=== PATIENT | female | born 1975 | race American Indian/Alaskan Native ===

== ENCOUNTER 2016-12-05 16:10 | Emergency (ER) | payer SELFPAY ==
[2016-12-05] MEDS ORDERED: TYLENOL #3 PO ONE (19:42)
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
[2016-12-05 20:05] VITALS: BP 151/88
== END 2016-12-05 20:05 | disposition home or self-care (01) ==
LOC: ED 16:10
DX: S39.012A Strain of muscle, fascia and tendon of lower back, initial encounter (principal); I10 Essential (primary) hypertension; V89.2XXA Person injured in unspecified motor-vehicle accident, traffic, initial encounter; Y93.9 Activity, unspecified; Y99.9 Unspecified external cause status; Y92.410 Unspecified street and highway as the place of occurrence of the external cause
CPT/HCPCS: 99283